=== PATIENT | male | born 1985 | race Two or more races ===

== ENCOUNTER 2025-02-09 19:47 | Emergency (ER) | payer MEDICAID, SELFPAY ==
[2025-02-09 19:48] VITALS: PULSE 82; RESP 18; O2SAT 98; BMI 29.4
[2025-02-09 19:55] VITALS: BP 132/89; PULSE 89; RESP 18; TEMP 37.2; O2SAT 99
--- NOTE | 2025-02-09 20:06 | XR_ITS ---
Examination: Ribs, RIGHT, with PA chest, 5 views Technique: Chest PA, RIBS AP, RPO, LPO, AP coned lower ribs 5 views Exam date and time: February 09, 20252038 hours INDICATIONS: Patient fell today with injury to the right chest, right rib pain. Findings: Normal heart size No pneumothorax No acute rib fractures IMPRESSION: No pneumothorax pulmonary contusion or hemothorax
--- NOTE | 2025-02-09 20:06 | XR_ITS ---
Examination:Right hip AP, lateral, AP pelvis 3 views Technique: Hip AP lateral, AP pelvis, 3 views Exam date and time:February 09, 20252038 hours INDICATIONS: Patient fell today with injury to the right hip, right hip pain. FINDINGS: No right hip fracture or hip dislocation Left hip films the pelvis and direct IMPRESSION: No acute hip or pelvic fracture.
--- NOTE | 2025-02-09 20:08 | EDNOTE_ITS ---
ED Fall Injury RME/HPI General Chief Complaint: Weakness Stated Complaint: FALL Time Seen by Provider: 02/09/25 19:54 Arrival date/time: 02/09/25 19:47 RME / HPI RME / HPI Narrative: 39-year-old male patient with significant history of hypertension diabetes mellitus, stroke, with right-sided weakness, status post below-knee amputation, was brought in by EMS for ground-level fall. Patient is trying to ambulate and lost balance and fall, now complaining of pain to the right lateral chest wall, right hip, described as dull ache, severity moderate. Patient was recently discharged from [facility], 2 days ago, after patient went to follow-up with PCP and it lasted for more than 4 hours and since then he cannot go back because he was already AWOL for 4 hours. Patient is asking for help regarding placement to different usp. Patient denies any head injury denies any neck pain. Patient lives alone. Related Data Home Medications ?Medication ?Instructions ?Recorded ?Confirmed hydrocodone 5 mg-acetaminophen 325 1 tab PO Q6H PRN Pa in (Scale Score 01/29/24 02/24/24 mg tablet 7-10) insulin lispro-aabc 100 unit/mL See Protocol subcut AC 01/29/24 02/24/24 subcutaneous pen Previous Rx's ?Medication ?Instructions ?Recorded ascorbic acid (vitamin C) 250 mg 500 mg (2 x 250 mg) P O BID #90 tabs 12/08/23 tablet (Vitamin C) blood-glucose meter ([place] Chek #1 ea 12/08/23 Blood Glucose) insulin syringe-needle U-100 0.3 #10 ea 12/08/23 mL 29 gauge x 1/2 (BD Insulin Syringe) lancets 30 gauge ([place] Chek #100 ea 12/08/23 Lancets) pen needle, diabetic 31 gauge x #100 ea 01/25/24 3/16 (Comfort EZ Pen Irving) metoprolol succinate 100 mg 100 mg PO QDAY #30 ea 01/26 10/19 capsule sprinkle, ext. release 24 hr Allergies Allergy/AdvReac Type Severity Reaction Status Date / Time vancomycin Allergy Mild Rash Verified 02/23/24 23:49 Review of Systems Review of Systems Narrative Review of Systems: Review of system reviewed and within normal limits except mentioned in HPI ED Exam Narrative Physical exam: VITAL SIGNS: Reviewed. GENERAL APPEARANCE: Alert and interactive, follows commands, no acute distress, HEAD AND FACE: Non-traumatic. ENT: PERRL, pink conjunctivitis, eyelid no trauma, Mucous membrane moist. NECK: Supple, nontender, no nuchal rigidity. CHEST: No tenderness, no crepitus, no paradoxical movement, no retractions. LUNGS: Clear, well ventilated, symmetric, no rales, no wheezing, no ronchi, no stridor, good breath sounds bilaterally. HEART: Regular rate, regular rhythm, no murmur, no gallops. ABDOMEN: Soft, positive bowel sounds, nondistended, no guarding, nontender, no rebound, no masses, RECTAL: Deferred. GENITAL: Deferred. NEUROLOGICAL: Gross motor function intact sensory function intact, Appropriate for age. MUSCULOSKELETAL: low back nontender, full range of motion. EXTREMITIES: Nontender, full range of motion. On the left upper and lower lower extremity, status post BKA on the right SKIN: Color pink, dry, no rash, no lacerations, no abrasions, no contusions. LYMPHATICS: Deferred. Course Quality Measures none Orders Category Date Time Status EKG (ED ONLY) *Do not use* NOW Care 02/09/25 19:55 Completed IV [Insert IV] NOW Care 02/09/25 23:24 Active PT [Referral Physical Therapy] Stat Cons 02/09/25 23:09 Completed Diet Carbohydrate Consistent Low Diet 02/10/25 Breakfast Active EKG (ED Only) Stat Exams 02/09/25 19:55 Ordered XR hip RT w pelvis 2-3V Stat Exams 02/09/25 20:06 Completed XR ribs RT min 3V w CXR1V Stat Exams 02/09/25 20:06 Completed CBC Stat Lab 02/09/25 20:34 Completed Comprehensive Metabolic Panel Stat Lab 02/09/25 20:34 Completed Drug Screen,Urine Stat Lab 02/09/25 20:42 Completed Partial Thromboplastin Time Stat Lab 02/09/25 20:34 Completed Urinalysis, C/S if Indicated Stat Lab 02/09/25 20:42 Completed HYDROcodone*/APAP 5/325 [[place] 5/325] Med 02/09/25 21:40 Discontinued 1 tab PO X1 ONE Insulin Regular Med 02/09/25 22:51 Discontinued 10 unit SC X1 ONE Ringers Lactated 1000 ml [Lactated Ringers] 1,000 ml Med 02/09/25 22:52 Discontinued IV 999 mls/hr Sodium Chloride 0.9% 1000 ml [Ns] 1,000 ml Med 02/09/25 22:55 Discontinued IV 999 mls/hr Referral Process Improvement Specialist NOW 02/09/25 23:10 Active Vital Signs Vital signs: Vital Signs Temperature 99 F 02/09/25 19:55 Pulse Rate 89 02/09/25 19:55 Respiratory Rate 18 02/09/25 19:55 Blood Pressure 132/89 H 02/09/25 19:55 Pulse Oximetry (%) 99 02/09/25 19:55 Oxygen Delivery Method Room Air 02/09/25 19:55 Fall MDM Narrative MDM Narrative:: 39-year-old male patient with significant history of hypertension diabetes mellitus, stroke, with right-sided weakness, status post below-knee amputation, was brought in by EMS for ground-level fall. Patient is trying to ambulate and lost balance and fall, now complaining of pain to the right lateral chest wall, right hip, described as dull ache, severity moderate. Patient was recently discharged from [facility], 2 days ago, after patient went to follow-up with PCP and it lasted for more than 4 hours and since then he cannot go back because he was already AWOL for 4 hours. Patient is asking for help regarding placement to different usp. Patient denies any head injury denies any neck pain. Patient lives alone. X-ray of the ribs on the right came back unremarkable. X-ray of the right hip also came back unremarkable. Patient's workup is significant for blood sugar of 460 with no sign of diabetic ketoacidosis. Patient is medically cleared for possible placement to SNF or rehab hospital Care transferred to Dr Mkcay at 11 pm for final disposition Patient data External records reviewed:: None Clinical information provided by:: patient Social determinants that could affect healthcare access:: none Patient has the following chronic illnesses:: Diabetes hypertension How is presenting disease/condition affected by chronic disease/condition?: exacerbated by Evaluation data The following diagnostics were reviewed and interpreted by me:: lab results and radiology exam(s) Lab and/or radiology exams considered but not ordered:: None Interpretation Summary: See results MDM Medications / Prescriptions Medications or Prescriptions considered but not ordered:: None Medication administrations:: Medication Administration History Discontinued Medications Hydrocodone Bitart/Acetaminophen (Hydrocodone/Apap 5/325 Tablet) 1 tab PO X1 ONE Stop: 02/09/25 21:41 Last Admin: 02/09/25 21:44 Dose: 1 tab Documented By: MATA Lactated Ringer's (Lactated Ringers) 1,000 mls @ 999 mls/hr IV .Q1H1M ONE Stop: 02/09/25 23:52 Last Admin: 02/09/25 23:25 Dose: Not Given Documented By: PARK Non-Admin Reason: Discontinued Sodium Chloride (Ns) 1,000 mls @ 999 mls/hr IV .Q1H1M ONE Stop: 02/09/25 23:55 Last Infusion: 02/10/25 00:45 Dose: Infused Documented By: Admin: 02/09/25 23:34 Dose: 999 mls/hr Documented By: MATA Insulin Human Regular (Insulin Hum Regular 1 Unit/0.01 Ml (Per Unit)) 10 unit SC X1 ONE Stop: 02/09/25 22:52 Last Admin: 02/09/25 23:31 Dose: 10 unit Documented By: MATA Co-signed By: BD Insulin, IV fluids, and [place] Consultations Consultation(s) initiated? (list below): No Diagnosis Fall Differential Diagnosis: other (Fall, chest wall contusion, generalized weakness,) Most likely diagnosis given after review of the tests above:: Fall, chest wall contusion, generalized weakness, Admission Indicated Admission indicated?: not indicated Admission Request Was there a request for admission?: No Disposition Plan Disposition Plan: other (specify) Discharge Plan Prescriptions/Referrals Prescriptions/Med Rec: No Action ascorbic acid (vitamin C) [Vitamin C] 250 mg Tablet 500 mg PO BID Qty: 90 0RF (DME) blood-glucose meter [[place] Chek Blood Glucose] Misc See Rx Instructions .Route Qty: 1 0RF Rx Instructions: As directed (DME) lancets [[place] Lancets] 30 gauge misc See Rx Instructions .Route Qty: 100 0RF Rx Instructions: As directed (DME) insulin syringe-needle U-100 [BD Insulin Syringe] 0.3 mL 29 gauge x 1/2 syringe See Rx Instructions .Route Qty: 10 0RF Rx Instructions: As directed hydrocodone-acetaminophen 5-325 mg tablet 1 tab PO Q6H PRN (Reason: Pain (Scale Score 7-10)) insulin lispro-aabc 100 unit/mL insulin pen See Protocol subcut AC Protocol: Insulin Corrective High-Dose Regimen Condition: Fingerstick Blood Glucose Dose/Route: Insulin Units Condition: 0-150 Dose/Route: 0 units/SQ Condition: 151-200 Dose/Route: 2 units/SQ Condition: 201-250 Dose/Route: 4 units/SQ Condition: 251-300 Dose/Route: 6 units/SQ Condition: 301-350 Dose/Route: 8 units/SQ Condition: 351-400 Dose/Route: 10 units/SQ Protocol Text: see instructions Rx Instructions: 0-150= 0 units 151-200= 2 units 201-250=4 units 251-300=6 units 301-350=8 units 351-400=10 units metoprolol succinate 100 mg capsule,sprinkle,ER 24hr 100 mg PO QDAY Qty: 30 0RF (DME) pen needle, diabetic [Comfort EZ Pen [place]] 31 gauge x 3/16 needle See Rx Instructions .ROUTE Qty: 100 0RF Rx Instructions: As directed Referrals: No Primary/Family,Physician [Primary Care Provider] - In 1 week Problem List Clinical Impression: Weakness generalized, Diabetes mellitus, Status post below-knee amputation, History of CVA with residual deficit Patient/Caregiver Discharge Instructions Print Language: Nepalese
[2025-02-09 20:48] LABS: Collection Type, Urine Clean Catch; Squamous Epithelial Cell,Urine 0 /hpf (0-5)
[2025-02-09 20:52] LABS: Bilirubin,Urine Negative (Negative); Blood,Urine 2+ (Negative); Clarity,Urine Clear (Clear/Hazy); Color,Urine Colorless (Lt Yel-Yel); Culture Indicated,Urine Not Indicated; Glucose, Urine 4+ (Negative); Ketones,Urine Negative (Negative); Leukocyte Esterase,Urine Negative (Negative); Nitrite,Urine Negative (Negative); PH,Urine 6.5 (5.0-7.0); Protein,Urine Trace (Neg - Trace); RBC,Urine 10 /hpf (0-3); Specific Gravity,Urine 1.028 (1.001-1.035); Urobilinogen,Urine Negative mg/dL (0.0-1.0); WBC,Urine 1 /hpf (0-5)
[2025-02-09 21:01] LABS: Partial Thromboplastin Time 26.4 Seconds (22.0-36.0)
[2025-02-09 21:15] LABS: Amphetamine/Methamp Scrn,U Negative (Negative); Barbiturate Screen,Urine Negative (Negative); Benzodiazepines Screen,Urine Negative (Negative); Benzoylecgonine Screen, Ur Negative (Negative); Fentanyl Screen,Urine Negative (Negative); Opiate Screen,Urine Negative (Negative); THC Screen,Urine Negative (Negative)
[2025-02-09 21:42] LABS: Basophils # (Auto) 0.0 Thou/mm3 (0.0-0.2); Basophils % (Auto) 0 % (0-2.5); Eosinophils # (Auto) 0.1 Thou/mm3 (0.0-0.5); Eosinophils % (Auto) 1 % (0-10); Hematocrit 34.2 % (41.0-53.0); Hemoglobin 12.1 g/dL (13.5-16.0); Immature Granulocytes Auto 0.01 Thou/mm3 (0.00-0.00); Lymphocytes # (Auto) 2.3 Thou/mm3 (1.0-4.8); Lymphocytes % (Auto) 31 % (10-50); Mean Corpuscular HGB Conc 35.4 g/dl (31.0-37.0); Mean Corpuscular Hemoglobin 28.4 pg (25.0-35.0); Mean Corpuscular Volume 80 fL (80-100); Monocytes # (Auto) 0.6 Thou/mm3 (0.0-0.8); Monocytes % (Auto) 8 % (0-12); Neutrophils # (Auto) 4.6 Thou/mm3 (1.8-7.7); Neutrophils % (Auto) 60 % (37-80); Nucleated Red Blood Cell # 0.00 Thou/mm3 (0.00-0.00); Nucleated Red Blood Cell % 0 /100 WBC (0); Platelet Count 292 Thou/mm3 (140-440); RDW Standard Deviation 41.1 fL (35.1-43.9); Red Blood Count 4.26 Miln/mm3 (4.50-5.90); White Blood Count 7.6 Thou/mm3 (3.8-10.6)
[2025-02-09] MEDS: HYDROcodone/APAP 5/325 TABLET 1 TAB PO (21:44)
[2025-02-09 22:24] LABS: Alanine Aminotransferase 14 U/L (10-49); Albumin, Serum 4.4 gm/dL (3.5-5.0); Albumin/Globulin Ratio 1.5 (1.2-2.2); Alkaline Phosphatase 86 U/L (46-116); Anion Gap 11 (7-16); Aspartate Amino Transferase 17 U/L (0-34); BUN/Creatinine Ratio 13 Ratio (12-20); Bilirubin,Total 0.9 mg/dL (0.3-1.2); Blood Urea Nitrogen 12 mg/dL (9-23); Calcium 9.8 mg/dL (8.3-10.6); Calcium (Corrected) 9.8 mg/dL (8.5-10.1); Carbon Dioxide 23.5 mMol/L (20.0-31.0); Chloride 93 mMol/L (98-107); Creatinine (Component) 0.9 mg/dL (0.6-1.3); Estimated Creatinine Clearance 125.0 mL/min (>60); Globulin 2.9 gm/dL (2.3-3.5); Osmolality,Calculated 274 (275-295); Potassium 4.6 mMol/L (3.4-5.1); Sodium 127 mMol/L (136-145); Total Protein 7.3 gm/dL (5.7-8.2); eGFR > 60 See Note
[2025-02-09 22:29] LABS: Glucose 460 mg/dL (74-106)
[2025-02-09] MEDS: INSULIN HUM REGULAR 1 UNIT/0.01 ML (PER UNIT) 10 UNIT SC (23:31)
[2025-02-09] MEDS: SODIUM CHLORIDE 0.9% 1000 ML 1,000 ML 999 ML IV (23:34)
[2025-02-09 23:47] VITALS: BP 137/96; PULSE 89; RESP 19; TEMP 36.9; O2SAT 99
[2025-02-10] VITALS (7 sets, daily range): BP systolic 107–143; BP diastolic 57–108; PULSE 75–92; RESP 16–19; TEMP 36.7–36.9; O2SAT 97–100
--- NOTE | 2025-02-10 02:40 | PC.NURSE ---
pt blood sugar 228
--- NOTE | 2025-02-10 08:30 | PC.NURSE ---
BREAKFAST TRAY PROVIDED.
--- NOTE | 2025-02-10 09:39 | PC.PT ---
PT eval complete. Please see evaluation for details.
--- NOTE | 2025-02-10 11:18 | PC.CC ---
Weatherization Operations Manager, Mya informed by Charge NursePatria that patient presented to the ED due to suffering a fall at home and requesting placement at a long-term facility. CC met with patient [id number]. He reported that he was discharged from [facility] due to returning late from an appointment and being considered an AWOL. Patient reported that he went to a prosthetic appointment at [facility] in [place]. Patient was supposed to remain there for 3 to 6 months until his prosthetic was completed. Patient reported that he was staying at a trailer with stairs. While using a FWW he suffered a fall. Patient is requesting SNF placement. CC informed by Nigel that patient meets criteria for SNF placement. CC will complete [facility] referral; however, he needs insurance authorization. CC updated blueprint assembler-Lanise.
--- NOTE | 2025-02-10 12:30 | PC.NURSE ---
LUNCH TRAY PROVIDED.
[2025-02-10] MEDS: HYDROcodone/APAP 5/325 TABLET 1 TAB PO (14:00)
--- NOTE | 2025-02-10 16:00 | PC.NURSE ---
per provider nirmalay to start at home meds. at home meds discussed and fatou'd by dr. forrester.
[2025-02-10] MEDS: INSULIN DEGLUDEC 5 UNIT/0.05 ML (PER 5 UNITS) 15 UNIT SC (16:59)
[2025-02-10] MEDS: INSULIN LISPRO (AdmeLOG) 1 UNIT/0.01 ML UNIT SC ×2 (16:59→21:34)
--- NOTE | 2025-02-10 17:30 | PC.NURSE ---
dinner tray provided.
[2025-02-11] MEDS: HYDROcodone/APAP 5/325 TABLET 1 TAB PO ×2 (00:06→08:09)
--- NOTE | 2025-02-11 01:53 | PD.EDADDENDU ---
Emergency Room Addendum Addendum Narrative: I took over the care from Vitor Terry NP at 11 PM on 02/10/25. See previous notes for H&P and ED course. Patient is waiting for alf placement. At 6 AM on 02/11/25, the care of the patient was transferred to Dr. RODRIGUEZ. During my watch, the patient remained stable. Carl Orona MD
[2025-02-11 05:55] VITALS: BP 134/89; PULSE 85; RESP 18; TEMP 36.6; O2SAT 99
--- NOTE | 2025-02-11 06:54 | EDNOTE_ITS ---
Emergency Room Addendum Addendum Narrative: 0600: Care assumed from Dr. Orona, the previous shift emergency physician. Past medical, surgical, social and family history reviewed. Vitals and home medications reviewed. I will assume the care of the patient at this time, pending SNF placement. Please refer to the emergency department record for history and examination from initial visit.?The following addendum documentation note is intended to reflect any pending information, findings, or radiology results not included in the patient?s initial chart. 0900: leather worker reports no surrounding nursing facilities have accepted the patient for admission. States she has contacted the patients aunt who is in agreement to pick the patient up. Patient has remained stable through ED course and will DC home.
[2025-02-11 07:23] VITALS: BP 117/82; PULSE 78; RESP 18; TEMP 36.9; O2SAT 98
[2025-02-11] MEDS: INSULIN LISPRO (AdmeLOG) 1 UNIT/0.01 ML UNIT SC ×2 (08:09→12:38)
--- NOTE | 2025-02-11 08:58 | PC.CC ---
Addendum entered by Rocio Thomas 02/11/25 12:37: 234-[facility] and [facility] are connected and possible placement would be with either of these facilities. The wait is the insurance approval from these two facilities. These two facilites will look at the pts packet Addendum entered by Rocio Thomas 02/11/25 12:36: 1234-[facility] and [facility] are connected and possible placement would be with either of these facilities. Addendum entered by Rocio Thomas 02/11/25 11:42: 1134-ASW attempted to contact the pts aunt Na as she informed ASW that she would p/u the pt from the ER. Na did not answer the phone, so ASW contacted the aunts michelle Hill. Liz reported that her mother was running errands and would p/u pt as soon as she is done. Liz asked to give her mom 1 hour. Addendum entered by Rocio Thomas 02/11/25 10:47: 1046-Pt reported he will f/u with [facility]. after d/c. Addendum entered by Rocio Thomas 02/11/25 10:42: 1037- As of now, the following SNF facilities have declined: [facility]-social issues due to alcohol/drug use and criminal background [facility]-able to meet pts needs [facility]-unable to meet pts needs [facility]-Risk for director long term care care [facility]-No bed availability and h/o of inappropriate behavior with SNF staff, alcohol and drug use (see note above). [facility]-no male beds available. [facility] declined due to Negative History with patient. [facility] declined to due to Behavioral Issues, with pt. [facility] declined due to Negative History with Pt. [facility]-unable to meet pts special needs/care. [facility]-unable to meed pts special care needs The only facility left that may look at him, is [facility]. ASW contacted [facility], again, and she reported that at this time, they would initiate AUTH but not until tomorrow. ASW has made pt aware of this, as he is ready for d/c and family will be picking him up today. ASW provided the contact info of [facility] to the pt so he can f/u after d/c. Addendum entered by Rocio Thomas 02/11/25 09:51: 0950-[facility] declined due to Negative History with patient. Addendum entered by Rocio Thomas 02/11/25 09:42: 0940-ASW attempted to call Sedal from [facility] regarding their tentative acceptance via [facility], but she has not answered her cell nor has she responded to the chat box in [facility]. ASW left a detailed message on her cell phone voicemail requesting a return call. ASW contacted pts aunamadou Monzon again and she reported she is having breakfast, but will p/u pt when she is heading towards [place]. Addendum entered by Rocio Thomas 02/11/25 09:40: 0938-Nancy [phone] Intake for [facility] , however, she did not answer the phone. ASW left a voice message requesting a return call, but as of this writing no one has returned the call. Addendum entered by Rocio Thomas 02/11/25 09:35: 0931-ASW contacted pts aunt Na [phone] and asked if she could provide the phone number for the pts brother Breezy Short and she provided [phone]. ASW attempted to contact the brother but the call went straight to voicemail. ASW left a voice message requesting a return call. As of this writing, the pts brother has not returned the call. Addendum entered by Rocio Thomas 02/11/25 09:27: 0926-[facility] declined to due to Behavioral Issues, with pt. 09-[facility] and [facility] tentatively accepted, but pt needs AUTH. ASW attempted to contact [facility] as attempt to gain AUTH, but no response. Addendum entered by Rocio Thomas 02/11/25 09:24: 0924-[facility] declined due to Negative History with Pt. Addendum entered by Rocio Thomas 02/11/25 09:09: 0900-ASW spoke with pt to make him are of the SNFs declining his request for placement. ASW informed pt that his aunt Na was contacted and will be picking him up, as he is now ready for d/c. Pt stated, I don't know why they aren't picking me up (referring to the SNFs), cause I didn't do anything. ASW explained that since he is not going to be admitted and he is ready for d/c, family will be picking him up. ASW asked pt if he had any questions and he said, No. Pt understands the issue. Original Note: 0763-ASW contacted [facility] Rep Kathleen Daniel who reported that they are unable to take the pt back because of no bed availability. However, Kathleen also reported that [facility] will be placing him on a NO RETURN LIST due to pt leaving for hours, return drunk and high as well as taking pictures of the nurses private areas, making inappropriate comments and inappropriate touches to the SNF staff. ASW contacted pts aunt Na Evans [phone] and reported to her that the pt is ready for d/c and that no SNF has accepted him. ASW stressed the importance of someone picking up the pt as he will not admitted to the hospital. Na stated to give her a few minutes as she just got out of caodaism and she will come to strip picker the pt. The following SNFs have declines: [facility]-social issues due to alcohol/drug use and criminal background [facility]-able to meet pts needs [facility]-unable to meet pts needs [facility]-Risk for director long term care care [facility]-No bed availability and h/o of inappropriate behavior with SNF staff, alcohol and drug use (see note above). [facility]-no male beds available.
[2025-02-11 09:35] VITALS: BP 145/89; PULSE 93; RESP 18; TEMP 36.7; O2SAT 97
[2025-02-11 09:43] VITALS: BP 145/89; PULSE 93
[2025-02-11] MEDS: METOPROLOL TARTRATE 25 MG TABLET PO (09:43)
[2025-02-11] MEDS: ATORVASTATIN CALCIUM 20 MG TABLET PO (09:44)
[2025-02-11] MEDS: APIXABAN 2.5 MG TABLET 5 MG PO (12:38)
[2025-02-11 14:08] VITALS: BP 128/74; PULSE 74; RESP 18; TEMP 36.7; O2SAT 99
== END 2025-02-11 14:14 | disposition home or self-care (01) ==
PROVIDERS: Nurse Practitioner Family; Emergency Provider Emergency Medicine
DX: R53.1 Weakness (principal); M25.551 Pain in right hip; R07.89 Other chest pain; E11.9 Type 2 diabetes mellitus without complications; I10 Essential (primary) hypertension; I69.351 Hemiplegia and hemiparesis following cerebral infarction affecting right dominant side; Z60.2 Problems related to living alone; Z75.1 Person awaiting admission to adequate facility elsewhere; Z89.511 Acquired absence of right leg below knee; Z79.4 Long term (current) use of insulin; Z88.1 Allergy status to other antibiotic agents; W01.0XXA Fall on same level from slipping, tripping and stumbling without subsequent striking against object, initial encounter
CPT/HCPCS: 36415; 71101; 73502; 80053; 80307; 81001; 85025; 85730; 93005; 96360; 99283; J1815; J7030; A9270